=== PATIENT | female | born 1965 | race American Indian/Alaskan Native ===

== ENCOUNTER 2021-03-20 08:00 | Outpatient (CLI) | payer OTHER ==
[~2021-03-20 08:00] MED LIST: ALTACE10 MG
== END 2021-03-20 08:30 | disposition home or self-care (01) ==
LOC: PPH VACUNA 08:00
DX: Z23 Encounter for immunization (principal)

== ENCOUNTER 2022-04-26 10:04 | Outpatient (CLI) | payer OTHER | END 2022-04-26 10:05 | disposition home or self-care (01) | LOC: SONOGRAMA 10:04 | PROVIDERS: ATTEND Pathology Anatomic Pathology & Clinical Pathology | DX: E04.1 Nontoxic single thyroid nodule (principal); D44.0 Neoplasm of uncertain behavior of thyroid gland ==